=== PATIENT | female | born 1980 | race Hispanic/Latino ===

== ENCOUNTER 2018-03-20 16:13 | Outpatient (CLI) | payer OTHER | END 2018-03-20 16:14 | disposition home or self-care (01) | LOC: C.LAB 16:13 ==

== ENCOUNTER 2018-03-25 06:09 | Day surgery (SDC) | payer OTHER ==
[2018-03-18 11:05] VITALS: BMI 40.2
[2018-03-25] MEDS ORDERED: Midazolam 2 MG/2 ML VIAL ONE (08:41)
[2018-03-25] MEDS ORDERED: Propofol 10 mg/ml Inj (20 ML) ONE (08:41)
[2018-03-25] MEDS ORDERED: HYDROmorphone 0.5 mg/0.5 ml ISec IVP PRN (09:29)
[2018-03-25] MEDS ORDERED: HYDROmorphone 0.5 mg/0.5 ml ISec ONE (09:35)
[2018-03-25 10:26] VITALS: RESP 16; O2SAT 98
[2018-03-25 10:34] VITALS: PULSE 67; TEMP 97
[2018-03-25 13:05] VITALS: BP 123/69
--- NOTE | 2018-03-25 20:24 | OP ---
PROCEDURE DATE: 03/25/2018 PREOPERATIVE DIAGNOSES: Abnormal uterine bleeding, endometrial polyp, pelvic pain. POSTOPERATIVE DIAGNOSES: Abnormal uterine bleeding, endometrial polyp, pelvic pain. SURGEON: Aida Cordoba MD FAREBOX REPAIRER: Shona Thompson MD ANESTHESIA: General LMA. PROCEDURES PERFORMED: Hysteroscopic myomectomy, dilation and curettage, polypectomy with endometrial ablation via NovaSure. OPERATIVE FINDINGS: Enlarged 11-week size anteverted uterus, cervical dilation at 2 cm at baseline, bilateral ostia visualized. Myoma noted along the anterior wall and cervical polypoid tissue noted in the cervical canal. Hysteroscopic myomectomy completed under direct visualization. NovaSure device successful with uterine length at 6.5, width of 4.6. Ablation time 38 seconds. ESTIMATED BLOOD LOSS: 10 mL. COMPLICATIONS: None. DESCRIPTION OF PROCEDURE: The patient was taken to the operating room where she was given general anesthesia. Once it was found to be adequate, she was positioned on the operating table in the dorsal lithotomy position with the leg supported using stirrups. The patient was prepped and draped in the sterile fashion. Time-out was performed, confirmed correct patient and correct procedure. Bimanual examination was performed. A Keller retractor was placed in the anterior and posterior fornix of the vagina. Cervix was adequately visualized. A single-tooth tenaculum was placed in the anterior lip of the cervix. Endocervical curettings were obtained with a Kevwilnerian curette and sent to Pathology on [facility]. The uterus was then sounded to 11 cm. Following this, the cervix was sequentially dilated. Hysteroscope was then inserted. The MyoSure device was then inserted The specimens were then removed following this and gentle curettage was done. NovaSure device was then inserted. Cavity specimen was performed which passed. NovaSure device has been activated. Endometrium was then ablated. All instruments were removed. Good hemostasis at the tenaculum puncture site. At the end of the procedure, all needle, sponge, and instrument counts were noted to be correct x2. The patient tolerated the procedure well and was transferred to the recovery room in stable condition. Aida Cordoba MD [facility] # [id number]
== END 2018-03-25 14:06 | disposition home or self-care (01) ==
LOC: C.SDS 06:09
PROVIDERS: ATTEND Obstetrics & Gynecology
DX: N93.9 Abnormal uterine and vaginal bleeding, unspecified (principal); N84.0 Polyp of corpus uteri; R10.2 Pelvic and perineal pain
CPT/HCPCS: 58563; 88305; J1100; J1170; J1885; J2250; J2405; J2704; J3010